=== PATIENT | male | born 1960 | race Caucasian/White ===

== ENCOUNTER 2017-01-20 17:45 | Emergency (ER) | payer MEDICARE, OTHER ==
--- NOTE | ~2017-01-20 | CR181 ---
[facility] A Service of [facility] & [facility] RADIOLOGY TEXT RESULTS PATIENT: GANESH DOLL LOCATION: CFTX : 60 UNIT #: [id number] AGE: [address]: Shara Connell SEX: M ORDER DR: [id number] [facility] [address] [place], [place] [address] [id number] E MR#: [id number] Acc #: [id number] NAME: GANESH DOLL : 1960 SEX: M STUDY DATE/TIME: 01/20/2017 20:32 UNIT: [facility] ROOM: STUDY DESCRIPTION: CR Lumbar Spine 2 or 3 Views Attending Physician: Shara Connell Pa-C Ordering Physician: Ed Doctor [id number] [facility] Primary Care Physician: Primary Care Physician No MEDICAL IMAGING REPORT This report is preliminary unless electronic signature is present EXAM Lumbar spine 01/20/2017 HISTORY 56-year-old male in the ED complaining of new onset low back pain beginning earlier today. TECHNIQUE 3-view lumbar spine series. FINDINGS No acute or chronic fracture deformity or additional osseous lesion. Minimal degenerative disc space narrowing at L5-S1. Lumbar vertebral alignment is normal. IMPRESSION 1. No acute osseous abnormality. 2. Mild degenerative disc space changes at L5-S1. 3. No change since 03/19/2014. Dictated by... Russell Bui M.D. THIS IS AN ELECTRONICALLY VERIFIED REPORT Russell Bui M.D. at 01/21/2017 4:55 PM YOVANYW/steph TD: 01/21/2017 01:03 JOB #: [id number] MEDICAL IMAGING REPORT Page 1 of 1 COPY
--- NOTE | ~2017-01-20 | US85 ---
[facility] A Service of [facility] RADIOLOGY TEXT RESULTS PATIENT: GANESH DOLL LOCATION: CFTX : 60 UNIT #: [id number] AGE: [address]: Shara Connell SEX: M ORDER DR: [id number] [place] [id number] [facility] [place], [place] [address] [id number] E MR#: [id number] Acc #: [id number] NAME: GANESH DOLL : 1960 SEX: M STUDY DATE/TIME: 01/20/2017 19:48 UNIT: CFTX ROOM: STUDY DESCRIPTION: [facility] Attending Physician: Shara Connell Pa-C Ordering Physician: Ed Doctor [id number] [facility] Primary Care Physician: Primary Care Physician No MEDICAL IMAGING REPORT This report is preliminary unless electronic signature is present EXAM Left lower extremity duplex Doppler venous ultrasound COMPARISON None INDICATION 56-year-old male with left leg pain for 3 weeks. TECHNIQUE Venous ultrasound examination of the left lower extremity was performed using grayscale, spectral Doppler and color flow Doppler imaging. FINDINGS The examination is negative. There is no evidence of left lower extremity deep venous thrombus from the groin to the lower calf. Visualized greater saphenous vein is also patent. IMPRESSION Negative examination. No evidence of left lower extremity deep venous thrombosis. Dictated by... Brian Patricia M.D. THIS IS AN ELECTRONICALLY VERIFIED REPORT Brian Patricia M.D. at 01/25/2017 7:30 AM YASH/kristar TD: 01/21/2017 00:45 JOB #: [id number] [facility] A Service [facility] RADIOLOGY TEXT RESULTS PATIENT: GANESH DOLL LOCATION: [place] : 60 UNIT #: [id number] AGE: [address]: Shara Connell SEX: M ORDER DR: MEDICAL IMAGING REPORT Page 1 of 1 COPY
--- NOTE | ~2017-01-20 | CR172 ---
[facility] A Service of [facility] & [facility] RADIOLOGY TEXT RESULTS PATIENT: GANESH DOLL LOCATION: CFTX : 60 UNIT #: [id number] AGE: [address]: Shara Connell SEX: M ORDER DR: [id number] [facility] [address]. [place], [place] [address] [id number] E MR#: [id number] Acc #: [id number] NAME: GANESH DOLL : 1960 SEX: M STUDY DATE/TIME: 01/20/2017 20:36 UNIT: [facility] ROOM: STUDY DESCRIPTION: CR Knee 3 Views Lt Attending Physician: Shara Connell Pa-C Ordering Physician: Ed Doctor [id number] [facility] Primary Care Physician: Primary Care Physician No MEDICAL IMAGING REPORT This report is preliminary unless electronic signature is present EXAM Left knee series 01/20/2017 HISTORY 56-year-old male in the ED complaining of left knee pain and low back pain beginning earlier today. No reported acute injury. TECHNIQUE 3-view left knee series. FINDINGS The examination is negative. No fracture, arthropathy or other osseous abnormality. No visible joint effusion. IMPRESSION Negative left knee series. Dictated by... Russell Bui M.D. THIS IS AN ELECTRONICALLY VERIFIED REPORT Russell Bui M.D. at 01/21/2017 4:55 PM JENNY/steph TD: 01/21/2017 01:05 JOB #: [id number] MEDICAL IMAGING REPORT Page 1 of 1 COPY
== END 2017-01-20 21:24 | disposition home or self-care (01) ==
LOC: CFTX 17:45 → CED 17:45 → CFTX 19:39
DX: M79.662 Pain in left lower leg (principal); J45.909 Unspecified asthma, uncomplicated; F41.9 Anxiety disorder, unspecified; F17.210 Nicotine dependence, cigarettes, uncomplicated
CPT/HCPCS: 72100; 73562; 93971; 99284